=== PATIENT | male | born 1935 | race Caucasian/White ===

== ENCOUNTER 2018-02-18 10:06 | Emergency (ER) | payer OTHER ==
[~2018-02-18] VITALS: Ht 165.1 cm; Wt 68.0 kg
[~2018-02-18 10:06] MED LIST: ASPIRIN EC81 M1 PO; FINASTERIDE5 M1 PO; GEMFIBROZIL600 MG PO; METFORMIN HCL500 M3 PO; METOPROLOL SUCC50 MG PO; NAPROSYN500 M1 PO; PRAVASTATIN SOD40 M2 PO; PRINIVIL20 M1 PO
[2018-02-18] MEDS ORDERED: ATIVAN1 M1 PO (10:48)
[2018-02-18] MEDS ORDERED: VITAMIN B-121000 MC3 PO (10:49)
--- NOTE | 2018-02-18 11:16 | ED AMS/SEIZURE/WEAK/DIZZY ---
History of Present Illness General Chief Complaint: Dizziness Stated Complaint: DIZZINESS Source: patient Exam Limitations: no limitations Allergies Coded Allergies: NO KNOWN ALLERGIES (11/17/15) Reconcile Medications Aspirin (Ecotrin*) 81 MG TABLET.DR 1 TAB PO DAILY HEART HEALTH (Reported) Cyanocobalamin (Vitamin B-12) 1,000 MCG TABLET 1 TAB PO DAILY VITAMIN SUPPORT (Reported) Finasteride 5 MG TABLET 1 TAB PO DAILY PROSTATE (Reported) Lisinopril (Prinivil) 20 MG TABLET 1 TAB PO DAILY HEART (Reported) LORazepam (Ativan) 1 MG TAB 1 TAB PO DAILY ANXIETY (Reported) Metformin HCl 500 MG TABLET 1 TAB PO BID DIABETES (Reported) Pravastatin Sodium 40 MG TABLET 1 TAB PO DAILY CHOLESTEROL (Reported) Triage Note: PT C/O FEELING DIZZY STATES THIS HAS COME AND GONE. PT REPORTS ONE EPISODE TWO WEEKS AGO AND THEN AGAIN LAST NIGHT. PT STATES HE FELT THAT IT WOULD JUST GO AWAY BUT IT STILL GOING ON THIS AM. PT DENIES CHEST PAIN. PT STATES HE DID HAVE A ROMERO LAST NIGHT BUT THAT HAS RESOLVED. Triage Nurses Notes Reviewed? yes HPI: Mr. Daniels, 82-year-old male with a past medical history of hypertension and type 2 diabetes mellitus that came in with a complaint of dizziness starting yesterday. Patient reports that it occured after waking up from his nap. He describes it as the room spinning. It occures whenever he does sudden head movements, such as getting up from his bed and getting up from a chair. It lasted for a couple of hours. He reports a similar episode 2 weeks ago, at this time he was also waking up from his nap, he drank juice and felt better afterwards. He denies nausea, vomiting, blurry vision, ringing in the ears, fever, chills, or loss of consciousness. 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 (Prince Vogel MD,[facility]) Vital Signs & Intake/Output Vital Signs & Intake/Output Vital Signs Date Time Temp Pulse Resp B/P B/P Pulse O2 O2 Flow FiO2 Mean Ox Delivery Rate 02/18 1048 Room Air Room Air 02/18 1012 96.4 79 18 155/97 95 Room Air (Loren CARMONA,Marino Scales) Past History Travel History Traveled to [place] past 21 day No Medical History Any Pertinent Medical History? see below for history Neurological: NONE EENT: NONE Cardiovascular: hypertension Respiratory: NONE Gastrointestinal: NONE Hepatic: NONE Renal: NONE Musculoskeletal: NONE Psychiatric: NONE Endocrine: diabetes Blood Disorders: NONE Cancer(s): NONE HEAT SEALING MACHINE OPERATOR/Reproductive: NONE Tetanus Vaccine: 11/12/12 Surgical History Surgical History: non-contributory Psychosocial History Who do you live with Patient/Self What is your primary language Slovenian Tobacco Use: Never used ETOH Use: denies use Illicit Drug Use: denies illicit drug use Family History Hx Contributory? No (Raphael Lira MD) Review of Systems Review of Systems Constitutional: Reports: no symptoms. EENTM: Reports: no symptoms. Respiratory: Reports: no symptoms. Cardiovascular: Reports: no symptoms. GI: Reports: no symptoms. Genitourinary: Reports: no symptoms. Musculoskeletal: Reports: no symptoms. Skin: Reports: no symptoms. Neurological/Psychological: Reports: see HPI, other (Dizziness). Hematologic/Endocrine: Reports: no symptoms. Immunologic/Allergic: Reports: no symptoms. (Raphael Lira MD) Physical Exam Physical Exam General Appearance: well developed/nourished, no apparent distress, alert, awake , comfortable Head: atraumatic, normal appearance Eyes: Bilateral: normal appearance, PERRL, EOMI. Ears, Nose, Throat: Tympanic membrane intact, no bulging noted. External auditory canal with considerable wax bilaterally, however more significant on the right side. 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 Core Measures ACS in differential dx? No CVA/TIA Diagnosis No Sepsis Present: No Sepsis Focused Exam Completed? No (Raphael Lira MD) Progress Differential Diagnosis: dehydration, electrolyte imbalance, Benign Paroxysmal Positional Vertigo Initial ED EKG: none (Raphael Lira MD) Plan of Care: Orders Procedure Date/time Status MISTAKE 02/18 1118 Active URINALYSIS 02/18 1116 Complete COMPREHENSIVE METABOLIC PANEL 02/18 1116 Complete CBC WITHOUT DIFFERENTIAL 02/18 111 Complete Laboratory Tests 02/18/18 1200: Urine Color YEL, Urine Clarity CLEAR, Urine pH 6.0, Ur Specific [place] 1.025, Urine Protein NEG, Urine Ketones NEG, Urine Nitrite NEG, Urine Bilirubin NEG, Urine Urobilinogen 0.2, Ur Leukocyte Esterase NEG, Ur Microscopic EXAM NOT REQUIRED, Urine Hemoglobin NEG, Urine Glucose NEG 02/18/18 1145: Anion Gap 10, Estimated GFR > 60, BUN/Creatinine Ratio 16.4, Glucose 120 H, Calcium 9.6, Total Bilirubin 0.4, AST 21, ALT 19 L, Alkaline Phosphatase 59, Total Protein 7.0, Albumin 4.1, Globulin 2.9, Albumin/Globulin Ratio 1.4, CBC w Diff NO MAN DIFF REQ, RBC 4.50 L, MCV 90.0, MCH 30.0, MCHC 33.3, RDW 14.4, MPV 6.4 L, Gran % 76.3 H, Lymphocytes % 14.8 L, Monocytes % 7.5, Eosinophils % 0.9, Basophils % 0.5, Absolute Granulocytes 5.0, Absolute Lymphocytes 1.0 L, Absolute Monocytes 0.5, Absolute Eosinophils 0.1, Absolute Basophils 0 (Loren CARMONA,Marino Scales) Departure Departure Disposition: HOME OR SELF CARE Condition: Stable Clinical Impression Primary Impression: Vertigo Referrals: Romeo Preciado MD (PCP/Family) Additional Instructions: Please follow up with your PCP within one week, to discuss uresis and results from your emergency department visit. Should symptoms worsen, return to the emergency department. Departure Forms: Customer Survey General Discharge Information Prescriptions: Current Visit Scripts Meclizine HCl 1 TAB PO BID PRN Dizziness #60 TAB (Prince Vogel MD,Raphael) PA/DINING ROOM MANAGER Co-Sign Statement Statement: ED Attending supervision documentation- [X] I saw and evaluated the patient. I have also reviewed all the pertinent lab results and diagnostic results. I agree with the findings and the plan of care as documented in the PA's/DINING ROOM MANAGER's documentation. [] I have reviewed the ED Record and agree with the PA's/DINING ROOM MANAGER's documentation. [] Additions or exceptions (if any) to the PAs/DINING ROOM MANAGER's note and plan are summarized below: [] (Loren CARMONA,Marino Scales)
[2018-02-18 12:05] LABS: ABSOLUTE BASOPHIL COUNT 0 /CUMM (0.0-0.2); ABSOLUTE EOSINOPHIL COUNT 0.1 /CUMM (0.0-0.7); ABSOLUTE MONOCYTE COUNT 0.5 /CUMM (0.10-0.60); BASOPHIL % 0.5 % (0.0-2.0); EOSINOPHIL % 0.9 % (0-5); GRANULOCYTE % 76.3 % (42.2-75.2); HEMATOCRIT 40.5 % (42-52); MEAN CORPUSCULAR HGB CONC 33.3 G/DL (33.0-37.0); MEAN PLATELET VOLUME 6.4 FL (7.4-10.4); PLATELET COUNT 296 /CUMM (130-400); RBC DISTRIBUTION WIDTH 14.4 % (11.5-14.5); WHITE BLOOD CELL COUNT 6.6 /CUMM (4.8-10.8)
[2018-02-18] MEDS ORDERED: MECLIZINE HCL12.5 M1 PO (13:28)
[2018-02-18 13:41] VITALS: BP 141/79
== END 2018-02-18 13:42 ==
LOC: ERH 10:06
PROVIDERS: Student in an Organized Health Care Education/Training Program
DX: R42 Dizziness and giddiness (principal)
CPT/HCPCS: 81003; J7040